=== PATIENT | male | born 1965 | race Caucasian/White ===

== ENCOUNTER → 2023-10-11 06:59 | Outpatient (REF) | payer BC, SELFPAY | LOC: DHCBC HW 06:59 | PROVIDERS: ATTENDING PHYSICIAN Internal Medicine Cardiovascular Disease; FAMILY PHYSICIAN Family Medicine Geriatric Medicine | DX: R07.89 Other chest pain (principal); R06.09 Other forms of dyspnea; R07.9 Chest pain, unspecified | CPT/HCPCS: 93306 ==

== ENCOUNTER → 2023-12-11 11:42 | Outpatient (REF) | payer BC, SELFPAY | LOC: DHCBC/DCA 11:42 | PROVIDERS: ATTENDING PHYSICIAN Internal Medicine Cardiovascular Disease; FAMILY PHYSICIAN Family Medicine Geriatric Medicine | DX: R07.89 Other chest pain (principal); R06.09 Other forms of dyspnea; R07.9 Chest pain, unspecified | CPT/HCPCS: 78452; 93017; A9500; J2785 ==

== ENCOUNTER 2024-09-06 16:27 | Emergency (ER) | payer BC, SELFPAY ==
[2024-09-06 16:28] VITALS: BP 178/86
[2024-09-06 17:11] VITALS: BMI 36.9
--- NOTE | 2024-09-06 17:18 | ED.GENMED ---
History of Present Illness
General
Chief Complaint: Breathing Problem
Source: patient and family
Exam Limitations: none
Time Seen by Provider: 09/06/24 17:07
Nursing documentation reviewed up to this point in time: agreed with
History of Present Illness
History of Present Illness:
59-year-old male concerns from complaining of shortness of breath, cough for the past 6 days. He tested positive for the flu 4 days ago and was started on Tamiflu. He also had a chest x-ray done at urgent care, which he states showed he had a
slight pneumonia.
Past History
Past History
ED Past Medical History: Asthma, CHF, HTN, Hypercholesterolemia and Other (Sarcoidosis, tracheostomy, LBBB, Ischemic colitis, Multiple body fractures)
ED Past Surgical History: Orthopedic (Jaw surgery with titanium replacement Left sided)
Social History
Tobacco: Non-smoker
Alcohol: Occasional
Drug: None
Personal:
Living: with family
Employment: Employed
Review of Systems
Review of Systems
Allergies reviewed?: Yes
All Other Systems: Not applicable
Constitutional: Reports no symptoms; Denies fever
EENT: Reports no symptoms
Respiratory: Reports cough and trouble breathing
Cardiac: Reports no symptoms
ABD/GI: Reports no symptoms
: Reports no symptoms
Musculoskeletal: Reports no symptoms
Skin: Reports no symptoms
Neurological: Reports no symptoms
Endocrine: Reports no symptoms
Hematologic/Lymphatic: Reports no symptoms
Psychiatric: Reports no symptoms
Phy Exam
Physical Exam
Physical Exam:
Physical Exam
General: no apparent distress, not acutely ill, afebrile
Neck: supple. no meningeal signs. normal posterior pharynx
Heart: s1/s2 regular rate and rhythm, no murmur. equal radial
pulses.
HEENT: Pupils equal round reactive to light, EOMI
Lungs: no acute respiratory distress. clear bilaterally right, cough
Abdomen: normal bowel sounds. not tender. no CVAT
Neuro: alert and oriented. no focal neurological deficits cranial nerves II through XII intact
Skin: no rash
Psychiatric: well kept. interactive and cooperative
Extremities: no edema. no calf tenderness. negative homans. good distal pulses
Scores
Heart Failure Risk
Heart Failure Risk Score: Not Applicable
Course
Orders/Labs/Results
Orders:
Orders
09/06/24 16:32
Electrocardiogram (*1) Urgent
Reason for Study: Shortness of Breath
09/06/24 16:33
EKG- Treatment ONCE
09/06/24 17:10
CR Chest - 2 Views Urgent
Comment:
Reason For Exam: short of breath, influenza
09/06/24 17:18
Ipratropium/Albuterol Sulfate [Duoneb] 3 ml INH R NOW STA
09/06/24 17:26
Complete Blood Count/With Diff Urgent
Comprehensive Metabolic Panel Urgent
09/06/24 20:22
Prednisone [Deltasone] 50 mg PO NOW STA
Abnormal Lab Results
09/06/24
17:26
MCHC 32.6 L g/dL
(33.0-37.0)
Absolute Monos (auto) 1.0 H 10^3/uL
(0.1-0.6)
Monocytes % 12.9 H %
(1.7-9.3)
Eosinophils % 8.9 H %
(0-6)
Carbon Dioxide 33 H mmol/L
(22-30)
Glucose 116 H mg/dl
(70-99)
09/06/24 17:26
09/06/24 17:26
Vital Signs
Initial and Last Documented VS:
Initial Vital Signs
Temp Pulse Resp BP Pulse Ox
98.4 F 73 20 178/86 100
09/06/24 16:28 09/06/24 16:28 09/06/24 16:28 09/06/24 16:28 09/06/24 16:28
Last Documented Vital Signs
Temp Pulse Resp BP Pulse Ox
98.4 F 65 26 106/53 100
09/06/24 16:28 09/06/24 19:52 09/06/24 19:52 09/06/24 19:52 09/06/24 19:52
MDM/Problems Addressed
Differential Diagnosis Includes:
Pneumonia, influenza
MDM/Problems Addressed:
59-year-old male with influenza, bronchitis. Vital signs stable. No signs of respiratory distress. Stable for discharge.
Chronic conditions affecting care: Asthma
Acute Exacerbation and/or Progression of Chronic Illness: Asthma
*Radiology
Radiology exam reviewed: radiology read reviewed (Chest x-ray no acute findings)
*Pulse Oximetry
Patient hypoxic: no
*EKG
Interpreted by ED Provider?: Yes
EKG Intrepretation Date: 09/06/24
EKG Intrepretation Time: 16:38
Interpretation: abnormal
Comparison EKG: no changes
Heart Rate: 76
Rate: normal
Rhythm: sinus
[place]: normal axis
Interval: normal interval
QRS Pattern: right bundle branch block
Ischemia: no ischemia
*Hr Operations Advisor Interpretation
Rate: normal
Interpretation: normal
Heart Rate: 75
Rhythm: sinus
*Critical Care Note
Total Time (30-74mins, 75-104mins- exclusive of procedures): Not Applicable
Patient Management
Social determinants of health affecting care: Living situation and Strong social support
Escalation/DeEscalation of care consider admission/obs:
admit not indicated
ED Attending Note
-
Portions of this chart may have been created with voice recognition software.� Occasional wrong word or��sound alike� substitutions may have occurred due to the inherent limitations of voice recognition software.
Discharge Plan
Departure
Patient Disposition: Home (Routine Discharge)
Date of Disposition: 09/06/24
Time of Disposition: 20:23
Patient with high blood pressure during this ER visit?: No
Condition: Good
Discharge Problem:
Influenza A, Acute bronchitis
Instructions: Acute Bronchitis, Adult (DC), Flu in adults - Discharge instructions
Prescriptions:
New
prednisone 50 mg tablet
50 mg PO DAILY Qty: 5 0RF
No Action
escitalopram oxalate [Lexapro] 5 MG tablet
5 mg PO DAILY
prednisone 20 mg tablet
40 mg PO DAILY Qty: 8 0RF
cyclobenzaprine 10 mg tablet
10 mg PO TID PRN (Reason: muscle spasm) Qty: 15 0RF
Referrals:
UNKNOWN - PT DOES,NOT KNOW [Family Provider] -
Interventions
Interventions:
*Risk Screen - Suicide Last Done: 09/06/24 16:28
*General Assessment Last Done: 09/06/24 16:28
*Neglect/Abuse Screening Last Done: 09/06/24 19:58
ED- Fall Risk Assessment Last Done: 09/06/24 17:11
*ED COVID-19 Vaccine History Last Done: 09/06/24 16:28
ED- Cardiac Assessment Last Done: 09/06/24 17:17
ED- Pulmonary Assessment Last Done: 09/06/24 17:17
Discharge Date and Time
Print Language: [id number]
[2024-09-06 17:24] VITALS: BP 120/70
[2024-09-06] MEDS: DUONEB 3 ML INH (17:28)
[2024-09-06 17:33] LABS: % Basophils 1.1 % (0-2); % Eosinophils 8.9 % (0-6); % Immature Granulocytes 0.3 % (0-0.5); % Lymphocytes 26.4 % (20.5-51.1); % Monocytes 12.9 % (1.7-9.3); % Neutrophils 50.4 % (42.2-75.2); Absolute Basophils 0.1 10^3/uL (0-0.2); Absolute Eosinophils 0.7 10^3/uL (0-0.7); Absolute Neutrophils 3.8 10^3/uL (1.4-6.5); Hematocrit 42.9 % (39.0-52.0); Mean Corp Hgb Conc. 32.6 g/dL (33.0-37.0); Mean Corpuscular Hgb 29.1 pg (27.0-31.0); Mean Corpuscular Volume 89.2 fL (80.0-94.0); Mean Platelet Volume 9.4 fL (7.4-10.4); Nucleated Red Blood Cells % 0 % (-); Platelet Count 243 10^3/uL (130-400); Red Blood Cell Count 4.81 10^6/uL (4.70-6.10); White Blood Cell Count 7.5 10^3/uL (4.8-10.8)
[2024-09-06 17:46] LABS: ALT (SGPT) 27 U/L (0-50); AST (SGOT) 23 U/L (17-59); Albumin 4.3 g/dl (3.5-5.0); Alkaline Phosphatase 101 U/L (38-126); Blood Urea Nitrogen 17 mg/dl (9-20); Calcium 9.5 mg/dl (8.4-10.2); Carbon Dioxide 33 mmol/L (22-30); Chloride 99 mmol/L (98-107); Estimated Creatinine Clearance 125 ml/min; Glucose 116 mg/dl (70-99); Potassium 4.5 mmol/L (3.5-5.1); Sodium 140 mmol/L (135-145); Total Bilirubin 0.4 mg/dl (0.2-1.3); Total Protein 7.1 g/dl (6.3-8.2); eGFR > 60.00
[2024-09-06 18:00] VITALS: BP 132/62
[2024-09-06 19:52] VITALS: BP 106/53
[2024-09-06 20:00] VITALS: BP 106/58
[2024-09-06] MEDS: DELTASONE 50 MG PO (20:47)
== END 2024-09-06 21:02 | disposition home or self-care (01) ==
LOC: EMR 16:27
PROVIDERS: Emergency Medicine; EMERGENCY PHYSICIAN Emergency Medicine
DX: J20.9 Acute bronchitis, unspecified (principal); J10.1 Influenza due to other identified influenza virus with other respiratory manifestations; I45.10 Unspecified right bundle-branch block; J45.909 Unspecified asthma, uncomplicated; I11.0 Hypertensive heart disease with heart failure; I50.9 Heart failure, unspecified; E78.00 Pure hypercholesterolemia, unspecified; D86.9 Sarcoidosis, unspecified; K55.9 Vascular disorder of intestine, unspecified; I44.7 Left bundle-branch block, unspecified; Z88.1 Allergy status to other antibiotic agents; Z88.5 Allergy status to narcotic agent
CPT/HCPCS: 99285; 94640; 71046; 80053; 85025; 93005